=== PATIENT | male | born 1990 | race Two or more races ===

== ENCOUNTER 2018-07-24 15:51 | Inpatient (IN) | payer OTHER ==
[2018-07-24 16:31] VITALS: BMI 25.0
--- NOTE | 2018-07-24 17:30 | HP ---
COWS - Scale Resting Pulse: 1= DC 81-100 Sweatin= Chills/Flushing Restless Observation: 1= Difficult to Sit Still Pupil Size: 1= Pupils >than Normal Bone or Joint Aches: 1= Mild Discomfort Runny Nose/ Eye Tearin= Nasal Congestion GI Upset > 30mins: 3= Vomiting/Diarrhea Tremor Observation: 1= Tremor [place], Not Seen Yawning Observation: 2= >3x During Session Anxiety or Irritability: 2=Irritable/Anxious Goose Flesh Skin: 0=Smooth Skin COWS Score: 14 CIWA Score - Admission Criteria [facility] Guidelines: Admission for Medically Managed Detox: Requires at least one of the followin. CIWA greater than 12 2. Seizures within the past 24 hours 3. Delirium tremens within the past 24 hours 4. Hallucinations within the past 24 hours 5. Acute intervention needed for co occurring medical disorder 6. Acute intervention needed for co occurring psychiatric disorder 7. Severe withdrawal that cannot be handled at a lower level of care (continued vomiting, continued diarrhea, abnormal vital signs) requiring intravenous medication and/or fluids 8. Admission ROS [facility] - [facility] Chief Complaint: Pt here for heroin detox. Pt was in [facility] and was gettin methadone 60mg/day with the intention to have him go to outpt program at [facility]- but when pt went to the program , they did not have his name for admission to that methadone program. Pt started using heroin again- 1 bundle a day. Last use 24 hours ago. First started using percocets at age 14 and then started heroin a few months ago - sniffing heroin, a bundle/day. No medical problems No surgeries Mental health- anxiety and bipolar Cocaine- $400/day Marijuana- little smoke- 2 packs a day DUR_ no recent controlled substances Utox: THC, Cocaine and opiates Allergies/Adverse Reactions: Allergies Allergy/AdvReac Type Severity Reaction Status Date / Time soybean Allergy Verified 07/24/18 19:34 - Ebola screening Have you traveled outside of the country in the last 21 days: No Have you had contact with anyone from an Ebola affected area: No Have you been sick,other than usual withdrawal symptoms: No Patient History - Patient Surgical History Past Surgical History: No - PPD History Previous Implant?: Yes Documented Results: Negative w/o proof PPD to be Administered?: Yes - Smoking Cessation Smoking history: Current every day smoker Have you smoked in the past 12 months: Yes Aproximately how many cigarettes per day: 20 Hx Chewing Tobacco Use: No Initiated information on smoking cessation: Yes 'Breaking Loose' booklet given: 07/24/18 Family Disease History - Family Disease History Family History: Unable to Obtain (pt does not want to answer: "I don't know") Admission Physical Exam [facility] - Vital Signs Vital Signs: Vital Signs - 24 hr 07/24/18 16:28 Temperature 96.9 F L Pulse Rate 71 Respiratory 18 Rate Blood Pressure 125/70 - Physical General Appearance: Yes: Within Normal Limits HEENTM: Yes: Within Normal Limits Respiratory: Yes: Within Normal Limits Neck: Yes: Within Normal Limits Breast: Yes: Breast Exam Deferred Cardiology: Yes: Within Normal Limits, Regular Rhythm, Regular Rate, S1, S2 Abdominal: Yes: Within Normal Limits Genitourinary: Yes: Within Normal Limits Back: Yes: Within Normal Limits Musculoskeletal: Yes: Within Normal Limits Extremities: Yes: Within Normal Limits Integumentary: Yes: Within Normal Limits Lymphatic: Yes: Within Normal Limits - Diagnostic (1) Opioid use disorder Current Visit: Yes Status: Acute (2) Cocaine abuse Current Visit: Yes Status: Acute (3) Marijuana abuse Current Visit: Yes Status: Acute (4) Tobacco abuse Current Visit: Yes Status: Acute Cleared for Admission [facility] - Detox or Rehab [facility] Level of Care: Medically Managed [facility] Breath Alcohol Content Breath Alcohol Content: 0 Urine Drug Screen - Results Drug Screen Negative: No Urine Drug Screen Results: THC-Marijuana, KEE-Cocaine, OPI-Opiates
[2018-07-24] MEDS ORDERED: MAGNESIUM HYDROX 2400MG/30ML ORAL SUSPENSION 30 ML CUP PO PRN (17:38)
[2018-07-24] MEDS ORDERED: LOPERAMIDE HCL 2 MG CAPSULE PO PRN (17:38)
[2018-07-24] MEDS ORDERED: IBUPROFEN 400 MG TABLET (FP) PO PRN (17:38)
[2018-07-24] MEDS ORDERED: P-EPHED 60MG/TRIPROLIDI 2.5MG TABLET PO PRN (17:38)
[2018-07-24] MEDS ORDERED: hydrOXYzine PAMOATE 50 MG CAPSULE (FP) PO PRN (17:38)
[2018-07-24] MEDS ORDERED: guaiFENesin/D-METHORPHAN HB 10 ML UNIT-DOSE CUPS PO PRN (17:38)
[2018-07-24] MEDS ORDERED: MAGNESIUM CITRATE 300 ML BOTTLE PO PRN (17:38)
[2018-07-24] MEDS ORDERED: MENTHOL/PHENOL 1 EACH UD MM PRN (17:38)
[2018-07-24] MEDS ORDERED: MAG HYDROX/AL HYDROX/SIMETH 30 ML UNIT-DOSE CUP PO PRN (17:38)
[2018-07-24] MEDS ORDERED: ACETAMINOPHEN 325 MG TABLET (FP) PO PRN (17:38)
[2018-07-24] MEDS ORDERED: cloNIDine HCL 0.1 MG TABLET PO PRN (17:43)
[2018-07-24] MEDS ORDERED: METHADONE HCL 10 MG TABLET (FOR DETOX USE ONLY) PO ONE ×2 (21:45→23:00)
[2018-07-24] MEDS: THIAMINE HCL 100 MG TABLET (FP) PO SCH (21:53)
[2018-07-24] MEDS: diazePAM 5 MG TABLET PO PRN (21:54)
[2018-07-24] MEDS ORDERED: MELATONIN 5 MG TABLETS PO PRN (22:00)
[2018-07-25 01:35] LABS: URINE APPEARANCE CLEAR; URINE BILIRUBIN NEGATIVE (<2.0 mg/dL); URINE COLOR YELLOW; URINE GLUCOSE (UA) NEGATIVE (NEGATIVE); URINE KETONE TRACE (NEGATIVE); URINE LEUK ESTERASE NEGATIVE (NEGATIVE); URINE NITRITE NEGATIVE (NEGATIVE); URINE PROTEIN NEGATIVE (NEGATIVE); URINE UROBILINOGEN 4.0 E.U/dl mg/dL (0.2-1.0)
[2018-07-25] MEDS: diazePAM 5 MG TABLET PO PRN ×2 (09:35→17:57)
[2018-07-25] MEDS ORDERED: NICOTINE 21 MG/24 HOURS TOPICAL PATCH TD SCH (10:00)
[2018-07-25] MEDS ORDERED: METHADONE HCL 10 MG TABLET (FOR DETOX USE ONLY) PO ONE (10:00)
[2018-07-25] MEDS ORDERED: PRENATAL VITAMINS W/ FOLIC ACID TABLET (FP) PO SCH (10:00)
[2018-07-25] MEDS ORDERED: AMMONIUM LACTATE 12% LOTION 225 GM BOTTLE TP PRN (12:48)
--- NOTE | 2018-07-25 12:57 | PN ---
[facility] COWS - Scale Resting Pulse: 0= NC 80 or Below Sweatin= No chills or Flushing Restless Observation: 0= Sits Still Pupil Size: 0= Normal to Room Light Bone or Joint Aches: 0= None Runny Nose/ Eye Tearin= None GI Upset > 30mins: 0= None Tremor Observation of Outstretched Hands: 0= None Anxiety or Irritability: 0= None Goose Flesh Skin: 0=Smooth Skin [facility] Progress Note (SOAP) Subjective: Pt states he is doing well with the methadone detox. Would like to have lotrimin cream for feet fungal infection, dry skin lotion and ensure. O: Vital Signs - 24 hr 07/24/18 07/24/18 07/25/18 16:28 21:44 00:30 Temperature 96.9 F L 98.9 F Pulse Rate 71 67 Respiratory 18 18 16 Rate Blood Pressure 125/70 126/78 07/25/18 07/25/18 07/25/18 03:30 06:08 10:00 Temperature 97.4 F L 97.8 F Pulse Rate 73 69 Respiratory 18 18 20 Rate Blood Pressure 101/67 96/65 Laboratory Tests 07/24/18 23:45 Urine Color Yellow Urine Appearance Clear Urine pH 7.0 Ur Specific [place] 1.026 Urine Protein Negative Urine Glucose (UA) Negative Urine Ketones Trace H Urine Blood Negative Urine Nitrite Negative Urine Bilirubin Negative Urine Urobilinogen 4.0 e.u/dl Ur Leukocyte Esterase Negative a/p: Continue opioid detox protocol- pt without withdrawal Sx ensure given lotrimin cream given consult pending pt would like to f/u with suboxone at discharge refused labs this morning- but states b/c he was asleep- reordered
--- NOTE | 2018-07-25 18:11 | CONSULT ---
[facility] Psychiatric Consult - Data Date of interview: 07/25/18 Admission source: [facility] Identifying data: First admission to [facility] for this 28 y/o male seeking detoxification treatment, on , for heroin, cocaine and cannabis dependence. Used to be on methadone maintenance (60 mg/day) during his incarceration. Released in July 2017 and failed to enroll in an outpatient drug program at [facility] and relapsed. Substance Abuse History: Patient admits to daily use of crack + marihuana + heroin in addition to smoking cigarettes. Smoking history: Current every day smoker. Have you smoked in the past 12 months: Yes. Aproximately how many cigarettes per day: 20. Hx Chewing Tobacco Use: No. Initiated information on smoking cessation: Yes. 'Breaking Loose' booklet given: 07/24/18 Medical History: Patient endorses good general health. Psychiatric History: Patient admits to a history of multiple psychiatric hospitalizations ([facility]). Reportedly diagnosed with Bipolar Disorder and ADHD. Treated in senior care with [facility] + [facility]. Medications NOT taken for ONE year (self-report). No affiliation with psychiatric OPD care settings or providers. Mr Nascimento endorses a history of multiple suicide attempts via hanging during his 10 years of incarceration. Physical/Sexual Abuse/Trauma History: Patient declines to dicuss this domain. Additional Comment: Urine Drug Screen Results: THC-Marijuana, KEE-Cocaine, OPI- Opiates. Noted. Mental Status Exam - Mental Status Exam Alert and Oriented to: Time, Place, Person Cognitive Function: Good Patient Appearance: Well Groomed (short stature) Mood: Hopeful, Euthymic Affect: Appropriate, Normal Range Patient Behavior: Appropriate, Cooperative Speech Pattern: Clear Voice Loudness: Normal Thought Process: Goal Oriented Thought Disorder: Not Present Hallucinations: Denies Suicidal Ideation: Denies Homicidal Ideation: Denies Insight/Judgement: Poor Sleep: Poorly, Difficulty falling asleep Appetite: Good Muscle strength/Tone: Normal Gait/Station: Normal Psychiatric Findings - Problem List ([facility] 1, 2,3) (1) Opioid use disorder Current Visit: Yes Status: Chronic (2) Cannabis dependence Current Visit: Yes Status: Chronic (3) Cocaine dependence Current Visit: Yes Status: Chronic (4) Nicotine dependence Current Visit: Yes Status: Chronic (5) Insomnia Current Visit: Yes Status: Acute - Initial Treatment Plan Initial Treatment Plan: Psychoeducation. Sleep hygiene. Detoxification. Patient requests seroquel at bedtime (past history of improvement of insomnia from the use of seroquel). Seroquel 50 mg po hs. Side effects/benefits discussed with patient. Consent (verbal) granted to MD. Page.
[2018-07-25] MEDS ORDERED: CLOTRIMAZOLE 1% CREAM 15 GM TUBE TP SCH (22:00)
[2018-07-25] MEDS ORDERED: QUEtiapine FUMARATE 50 MG TABLET PO SCH (22:00)
[2018-07-25] MEDS: THIAMINE HCL 100 MG TABLET (FP) PO SCH (23:05)
[2018-07-26 06:22] VITALS: TEMP 98.9
[2018-07-26 09:26] VITALS: BP 132/77; PULSE 60
[2018-07-26] MEDS ORDERED: METHADONE HCL 5 MG TABLET (FOR DETOX USE ONLY) PO ONE (10:00)
[2018-07-26 10:18] LABS: BASO % 0.3 % (0-2.0); HEMATOCRIT 37.3 % (35.4-49); HEMOGLOBIN 13.1 GM/dL (11.7-16.9); LYMPH % 42.3 % (8-40); MCH 30.8 pg (25.7-33.7); MCHC 35.1 g/dl (32.0-35.9); MEAN CELL VOLUME 87.6 fl (80-96); MEAN PLT VOLUME 12.1 fl (7.5-11.1); MONO % 14.1 % (3.8-10.2); NEUT % 41.3 % (42.8-82.8); PLATELET COUNT 145 K/MM3 (134-434); RBC 4.26 M/mm3 (4.00-5.60); RDW 12.8 % (11.9-15.9); WHITE BLOOD COUNT 6.2 K/mm3 (4.0-10.0)
[2018-07-26 10:21] LABS: ALBUMIN 3.2 g/dl (3.4-5.0); ALK PHOS 50 U/L (45-117); ANION GAP 4 MMOL/L (8-16); BILIRUBIN,TOTAL 0.4 mg/dL (0.2-1); BLOOD UREA NITROGEN 11 mg/dL (7-18); CHLORIDE 108 mmol/L (98-107); CO2 30 mmol/L (21-32); CREATININE 1.1 mg/dL (0.55-1.3); GLUCOSE,RANDOM 75 mg/dL (74-106); SGOT/AST 19 U/L (15-37); SGPT/ALT 27 U/L (13-61); SODIUM 141 mmol/L (136-145); TOT PROT 6.1 g/dl (6.4-8.2)
[2018-07-26 12:29] LABS: RPR REACTIVE 1:1 (NONREACTIVE)
--- NOTE | 2018-07-26 12:38 | DS ---
[facility] Detox Discharge Summary Admission Date: 07/24/18 Discharge Date: 07/26/18 - History Present History: Cocaine Dependence, Opioid Dependence - Physical Exam Results Vital Signs: Vital Signs Temperature 98.9 F 07/26/18 06:21 Pulse Rate 60 07/26/18 09:25 Respiratory Rate 18 07/26/18 09:25 Blood Pressure 132/77 07/26/18 09:25 O2 Sat by Pulse Oximetry (%) Pertinent Admission Physical Exam Findings: PATIENT REQUESTED TO SIGN OUT AMA. PATIENT ENCOURAGED TO COMPLETE DETOX BUT REFUSED. PATIENT MEDICALLY STABLE AND DENIES SI/HI. PATIENT STATES HE WILL FOLLOW UP WITH [facility]. ENCOURAGED TO ATTEND GROUP MEETINGS TO PREVENT RELAPSE AND TO SEEK MEDICAL ATTENTION IF WITHDRAWAL SX OCCUR. NARCAN KIT SENT TO PHARM[facility]. - Medication Discharge Medications: Ambulatory Orders Naloxone HCl [Narcan] 4 mg NS PRN PRN #1 kit 07/26/18 - AMA Did Patient Leave Against Medical Advice: Yes
[2018-07-26 16:13] LABS: TREPONEMA ANTIBODY NON REACTIVE (NONREACTIVE)
[2018-07-27] MEDS ORDERED: METHADONE HCL 5 MG TABLET (FOR DETOX USE ONLY) PO ONE (10:00)
[2018-07-28] MEDS ORDERED: METHADONE HCL 10 MG TABLET (FOR DETOX USE ONLY) PO ONE (10:00)
[2018-07-29] MEDS ORDERED: METHADONE HCL 5 MG TABLET (FOR DETOX USE ONLY) PO ONE (06:00)
== END 2018-07-26 09:53 | disposition left against medical advice (07) | DRG 770 ==
LOC: YASAS 15:51 → Y3N 20:25
PROC: HZ2ZZZZ Detoxification Services for Substance Abuse Treatment (ICD-10-PCS; principal; 2018-07-24)
DX: F11.23 Opioid dependence with withdrawal (principal); F14.20 Cocaine dependence, uncomplicated; F12.20 Cannabis dependence, uncomplicated; F17.210 Nicotine dependence, cigarettes, uncomplicated; G47.00 Insomnia, unspecified
CPT/HCPCS: 36415; 80053; 81003; 85025; 86593; 86780